=== PATIENT | male | born 1990 | race Caucasian/White ===

== ENCOUNTER 2016-05-22 14:09 | Emergency (ER) | payer SELFPAY ==
[~2016-05-22 14:09] MED LIST: CYCLOBENZAPRINE10 MG PO; NORCO 325 MG-51 TAB PO
== END 2016-05-22 15:24 | disposition home or self-care (01) ==
LOC: ED 14:09
DX: S93.492D Sprain of other ligament of left ankle, subsequent encounter (principal); Z91.81 History of falling; W10.8XXD Fall (on) (from) other stairs and steps, subsequent encounter

== ENCOUNTER 2019-08-07 10:23 | Emergency (ER) | payer OTHER ==
[2019-08-07] MEDS ORDERED: MELOXICAM7.5 MG PO (11:34)
[2019-08-07] MEDS ORDERED: CYCLOBENZAPRINE10 M1 PO (11:34)
[2019-08-07 11:56] VITALS: BP 132/55
== END 2019-08-07 11:53 | disposition home or self-care (01) ==
LOC: ED 10:23
DX: S29.012A Strain of muscle and tendon of back wall of thorax, initial encounter (principal); M62.830 Muscle spasm of back; J45.909 Unspecified asthma, uncomplicated; F17.210 Nicotine dependence, cigarettes, uncomplicated; Z88.8 Allergy status to other drugs, medicaments and biological substances; X50.0XXA Overexertion from strenuous movement or load, initial encounter; Y92.89 Other specified places as the place of occurrence of the external cause; Y99.0 Civilian activity done for income or pay
CPT/HCPCS: J1885; J2360

== ENCOUNTER → 2019-12-18 | Outpatient (CLI) | payer OTHER ==
[~2019-12-18] MED LIST changes: +CYCLOBENZAPRINE10 M1 PO; +MELOXICAM7.5 MG PO
== END ==
LOC: RAD 08:34
DX: S69.90XA Unspecified injury of unspecified wrist, hand and finger(s), initial encounter (principal)

== ENCOUNTER 2020-01-16 08:00 | Outpatient (RCR) | payer OTHER | END 2020-01-16 08:30 | disposition still patient (30) | LOC: OT 08:00 | DX: S60.221D Contusion of right hand, subsequent encounter (principal) ==